=== PATIENT | male | born 1970 | race Caucasian/White ===

== ENCOUNTER 2019-02-14 08:06 | Emergency (ER) | payer SELFPAY | END 2019-02-14 11:00 | disposition left against medical advice (07) | LOC: ERS 08:06 | DX: Z53.21 Procedure and treatment not carried out due to patient leaving prior to being seen by health care provider (principal) | CPT/HCPCS: 93005 ==

== ENCOUNTER 2019-10-27 13:00 | Inpatient (IN) | payer BC ==
[2019-11-10 13:08] VITALS: BMI 33.2
[2019-11-15] MEDS ORDERED: Sodium Chloride 0.9% 100 ML ONE (05:54)
[2019-11-15] MEDS ORDERED: CEFAZOLIN 1 GM VIAL ONE (05:54)
[2019-11-15] MEDS ORDERED: Tranexamic Acid 1,000 MG/10 ML VIAL ONE (05:54)
[2019-11-15] MEDS ORDERED: Vancomycin 1.5 GRAM/300 ML BAG 1.5 GM/300 ML BAG ONE (05:56)
[2019-11-15] MEDS ORDERED: Midazolam HCl 2 mg/2 ml Vial ONE (06:27)
[2019-11-15] MEDS ORDERED: Fentanyl 100 MCG/2 ML VIAL ONE ×3 (06:27→09:45)
[2019-11-15] MEDS ORDERED: Ropivacaine 0.2% HCl/PF 20 ML ONE (07:06)
[2019-11-15] MEDS ORDERED: Adenosine 6 MG/2 ML VIAL ONE (07:16)
[2019-11-15] MEDS ORDERED: Naloxone HCl 0.4 mg/ml Vial IV PRN (07:30)
[2019-11-15] MEDS ORDERED: diphenhydrAMINE 25 MG CAP PO PRN ×2 (07:30→09:56)
[2019-11-15] MEDS ORDERED: traMADol HCl 50 MG TAB PO PRN ×2 (07:30→09:56)
[2019-11-15] MEDS ORDERED: Zolpidem Tartrate 5 MG TAB PO PRN ×2 (07:30→09:56)
[2019-11-15] MEDS ORDERED: Hydrocerin (Eucerin) Cream 120 gm Jar TOP PRN (07:30)
[2019-11-15] MEDS ORDERED: HYDROcodone/Acetaminophen 5/325 mg Tablet PO PRN (07:30)
[2019-11-15] MEDS ORDERED: diphenhydrAMINE 50 MG/ML VIAL IVP PRN (07:30)
[2019-11-15] MEDS ORDERED: Promethazine HCl 25 MG SUPP PR PRN (07:30)
[2019-11-15] MEDS ORDERED: Ondansetron PF 4 MG/2 ML Vial IVP PRN ×2 (07:30→09:56)
[2019-11-15] MEDS ORDERED: Bupivacaine 0.25% 10 ML VIAL EPIDURAL PRN (07:30)
[2019-11-15] MEDS ORDERED: diphenhydrAMINE 50 MG/ML VIAL IM PRN (07:30)
[2019-11-15] MEDS ORDERED: Naloxone HCl 0.4 mg/ml Vial IVP PRN (07:30)
[2019-11-15] MEDS ORDERED: Promethazine HCl 25 MG/ML VIAL IM PRN ×3 (07:30→09:56)
[2019-11-15] MEDS ORDERED: Promethazine HCl 25 MG/ML VIAL SLOW IVP PRN (08:18)
[2019-11-15] MEDS ORDERED: Ondansetron HCl/PF 4 MG/2 ML Vial IVP PRN (08:18)
[2019-11-15] MEDS ORDERED: Ondansetron PF 4 MG/2 ML Vial ONE (09:21)
[2019-11-15] MEDS ORDERED: PROPOFOL 200 MG/20 ML VIAL ONE (09:21)
[2019-11-15] MEDS ORDERED: Ketorolac Tromethamine 30 MG/ML VIAL ONE (09:21)
[2019-11-15] MEDS ORDERED: Lidocaine 1% PF 5 ML VIAL ONE (09:21)
[2019-11-15] MEDS ORDERED: Glycopyrrolate 0.2 MG/ML 5 ML SYRINGE ONE (09:21)
[2019-11-15] MEDS ORDERED: Lidocaine 1.5% w/Epi 1:200K 30 ML VIAL (Epid Use) ONE (09:21)
[2019-11-15] MEDS ORDERED: Rocuronium Bromide 10 MG/ML (10ML VIAL) ONE (09:21)
[2019-11-15] MEDS ORDERED: Bupivacaine 0.5% 10 ML VIAL ONE (09:45)
[2019-11-15] MEDS ORDERED: Morphine 2 MG/ML SYRINGE SLOW IVP PRN (09:56)
[2019-11-15] MEDS ORDERED: Morphine 4 MG/ML VIAL SLOW IVP PRN (09:56)
[2019-11-15] MEDS ORDERED: Fentanyl 100 MCG/2 ML VIAL SLOW IVP PRN ×2 (09:56)
[2019-11-15] MEDS ORDERED: HYDROcodone/Acetaminophen 10/325 mg Tablet PO PRN ×2 (09:56)
[2019-11-15] MEDS ORDERED: Acetaminophen 325 MG TAB PO PRN (09:56)
[2019-11-15] MEDS ORDERED: Promethazine HCl 25 MG/ML VIAL ONE (10:02)
--- NOTE | 2019-11-15 11:02 | RAD ---
EXAM: XR Hip Lt 1 View PROVIDED CLINICAL HISTORY: Postop COMPARISON: None FINDINGS: Postoperative changes of left total hip arthroplasty are demonstrated with associated soft tissue gas . IMPRESSION: As above.
--- NOTE | 2019-11-15 11:03 | RAD ---
EXAM: XR Pelvis AP STANDARD PROVIDED CLINICAL HISTORY: Postop COMPARISON: None FINDINGS: Postoperative changes of left total hip arthroplasty are demonstrated with associated soft tissue gas . Osseous fragment at the lateral margin of the superior acetabulum is noted, the chronicity of which is not certain. Correlation with preoperative films. IMPRESSION: As above.
[2019-11-15] MEDS: Ketorolac Tromethamine 30 MG/ML VIAL IVP SCH ×3 (12:52→23:58)
[2019-11-15] MEDS ORDERED: Ketorolac Tromethamine 30 MG/ML VIAL IVP SCH (14:00)
[2019-11-15] MEDS: HYDROcodone/Acetaminophen 5/325 mg Tablet PO PRN (15:19)
--- NOTE | 2019-11-15 15:19 | PDOC.HOSPP ---
- Subjective Encounter Date: 11/15/19 Encounter Time: 14:30 Subjective: Patient seen and examined. No new complaints. s/p left total hip replacement, consulted for medical management - Objective Vital Signs & Weight: Weight Weight 225 lb Radiology Reviewed by me: Yes (xray pelvic, xray hip) EKG Reviewed by me: Yes Hospitalist ROS - Review of Systems Eyes: denies: pain, vision change, conjunctivae inflammation, eyelid inflammation, redness, other ENT: denies: ear pain, ear discharge, nose pain, nose discharge, nose congestion , mouth pain, mouth swelling, throat pain, throat swelling, other Respiratory: denies: cough, dry, shortness of breath, hemoptysis, SOB with excertion, pleuritic pain, sputum, wheezing, other Cardiovascular: denies: chest pain, palpitations, orthopnea, paroxysmal noc. dyspnea, edema, light headedness, other Gastrointestinal: denies: nausea, vomiting, abdominal pain, diarrhea, constipation, melena, hematochezia, other Genitourinary: denies: dysuria, frequency, incontinence, hematuria, retention, other Musculoskeletal: denies: neck pain, shoulder pain, arm pain, back pain, hand pain, leg pain, foot pain, other Skin: denies: rash, lesions, vahid, bruising, other - Medication Medications: Active Medications Generic Name Dose Route Start Last Admin Trade Name Freq PRN Reason Stop Dose Admin Ketorolac Tromethamine 30 mg 11/15/19 12:00 11/15/19 12:52 Toradol IVP 11/17/19 06:01 Not Given Q6HR SAMIR - Exam General Appearance: NAD, awake alert Eye: PERRL, anicteric sclera ENT: normocephalic atraumatic, no oropharyngeal lesions Neck: supple, symmetric, no JVD, no thyromegaly Heart: RRR, no murmur, no gallops, no rubs Respiratory: CTAB, no wheezes, no rales, no ronchi Gastrointestinal: soft, non-tender, non-distended, normal bowel sounds Extremities: no cyanosis, no clubbing, no edema Extremities - other findings: left hip surgical site with dressing Skin: normal turgor, no lesions Neurological: cranial nerve grossly intact, no focal deficits Musculoskeletal: normal tone, normal strength Psychiatric: normal affect, normal behavior Hosp A/P (1) Status post left hip replacement Code(s): Z96.642 - PRESENCE OF LEFT ARTIFICIAL HIP JOINT Status: Acute (2) Obesity (BMI 30.0-34.9) Code(s): E66.9 - OBESITY, UNSPECIFIED Status: Chronic - Plan old records reviewed/req, plan discussed w/ family, PT/OT I have seen and examined pt bedside, updated plan to family, continue PT/OT as per [facility] protocol, continue aspirin for DVT prophylaxis as per [facility] protocol, medically stable with current treatment, Pain controlled. epidural as per anesthesia
[2019-11-15] MEDS: CEFAZOLIN 2 GM in Premix Bag 1 BAG IVPB SCH ×2 (15:20→23:57)
--- NOTE | 2019-11-15 15:29 | OP ---
DATE OF PROCEDURE: 11/15/2019 PREOPERATIVE DIAGNOSIS: Left hip dysplasia and/or healed fracture. POSTOPERATIVE DIAGNOSIS: Left hip dysplasia and/or healed fracture. PROCEDURE PERFORMED: Left total hip arthroplasty. CREATIVE ASSISTANT: Gregory Grady PA-C ANESTHESIOLOGIST: Jun. ANESTHESIA: The patient received general endotracheal tube and epidural and Gonzalez. ESTIMATED BLOOD LOSS: 350 mL. URINE: 200. IV FLUIDS: 1500 of crystalloids. ANTIBIOTICS: Vancomycin 1.5 g, Ancef 2 g, TXA 1 g. IMPLANTS: Tyron 58-mm hemispherical shell with a 10-degree poly insert and 130-degree Accolade II size 8 with a Biolox delta ceramic 36 +2.5 mm head. COMPLICATIONS: None. HISTORY OF PRESENT ILLNESS: Mr. Alonzo is a 49-year-old male with history of multiple medical problems, history of substance abuse and addiction to include methamphetamine. The patient has been sober for 2 years. He occasionally takes Tylenol No. 3, seen by Dr. Reed at [facility]. He has been followed by Pain Management. No surgeries. History of injections about 3 months ago. The patient's preoperative x-ray showed what appeared to be potential congenital hip disease versus healed fracture. Given the development of head intraoperatively, felt potentially he had development of hip dysplasia with secondary fracture, but had a change in the femoral head as well as with signs of healing of previous fracture intraoperatively. I discussed with the patient the risks and benefits of a left total hip arthroplasty to include pain, scar, bleeding, infection, damage to vital structures, decreased range of motion and strength, need for further surgeries, failure of procedure, continued pain despite surgical intervention, loss of life or limb, blood clots. I discussed that he must not return to IV drug use, increasing risk of infection, which could kill him. He understood the risks and benefits of procedure. The patient elects to proceed. DESCRIPTION OF PROCEDURE: Time-out was performed, designating the patient's left lower extremity as the operative site based on site, consents, and marking. After time-out, the patient's left lower extremity was prepped and draped in sterile fashion, and placed in lateral position with bony prominences well-padded. Lateral skin incision was made down to skin through the IT band, came down to the gluteus medius and minimus to expose the capsule. We T'd and held the capsule, exposed the femoral neck. There was a kind of what appeared to be a broken, potentially SCFE versus [id number] fracture with dysplastic hip. We made our 1st cut. The head was irregularly shaped as was the acetabulum. We made a secondary cut to get our neck in a better position. We then moved, placed our acetabular retractors anterior and posteriorly to expose acetabulum. We reamed, starting 44 up to a 48, attempting to keep it, medializing just the wall and then keeping it from lateralize to greatly came up to 55, which showed good fit. We knocked off the rim osteophytes from about the 10 o'clock position around to about the 4 o'clock position as well as open up the bone to help with exposure, decrease tenting of the capsule as well as to help with decreasing impingement with our osteophyte removal, we had placed our cup, placed our poly, impacted in place, and moved back to the hip. We broached up and had actually cut a little more neck about 3 more millimeters in the neck just about a half fingerbreadth above the lesser trochanter. We broached up, finally placing a size 8. We had reduced, felt good, a little bit of Shuck, overall good length. The patient was stiff before procedure was concerned about being stiff postoperatively, but he did have overall good lengths intraoperatively. Therefore, we placed the size 8 with +2.5 ceramic head, reduced it in place, washed, closed our T capsule with #2 Vicryl. We then closed with #5 Ethibond through 2 drill holes with an up and down stitch running, pulling the entire medius and minimus sleeve over to close as well as remainder with #2 Vicryl. We closed the IT band with 2 Vicryl, #2 Stratafix, 0 Stratafix, 2-0 Stratafix, and glue. The patient will be admitted for pain postoperatively. We will give one single dose radiation given the significant bone formation as well as previous fracture to decrease the risk of heterotopic ossification. We will follow inhouse. Job ID: [id number] [facility]
--- NOTE | 2019-11-15 17:34 | CON ---
DATE OF CONSULTATION: 11/15/2019 REASON FOR CONSULTATION: Mr. Alonzo is a 49-year-old gentleman, who is status post left total hip replacement, who is at risk for heterotopic ossification. HISTORY OF PRESENT ILLNESS: Mr. Alonzo states that he has had problems with his hip for 15 years. Apparently, he has a past history of drug use, although for the last several years, he has been sober. It was not clear whether he had a previous fracture of the hip or perhaps congenital hip disease. He underwent earlier today a total left hip arthroplasty. During the procedure, he did have multiple osteophytes and evidence of heterotopic ossification. I have now been asked to see the patient to discuss his options for treatment to prevent heterotopic ossification. He has been having pain in the hip and trouble walking prior to his surgery. Otherwise, he voices no other complaints. PAST MEDICAL HISTORY: He denies other medical or surgical problems. MEDICATIONS ON ADMISSION: None. ALLERGIES: NO KNOWN MEDICAL ALLERGIES. SOCIAL HISTORY: He lives in [place], with 2 roommates. 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 He has no cigarette use for the past 18 years, previously smoked 1 to 1.5 packs per day. He has no alcohol use at the present time. Again, he has a history of drug use, but has apparently been clean/sober for the last several years at least. FAMILY HISTORY: His mother is still living at age 67. His father is still living at age 65. There is no family history of cancer or other particular medical problems. REVIEW OF SYSTEMS: Twelve-system review of systems is otherwise negative. PHYSICAL EXAMINATION: VITAL SIGNS: Height 5 feet 9 inches, weight 225 pounds, blood pressure is 138/90, pulse is 68, respirations 16, temperature 98.2, and O2 saturation is 100%. CONSTITUTIONAL: He is alert and oriented and in no apparent distress. He is well developed and well nourished. Karnofsky performance status is a 90%. EYES: Pupils equal, round, and reactive to light. Extraocular movements are intact. ENT: Oral cavity and oropharynx normal without lesion or erythema. Palate elevates symmetrically. Gingiva is intact. NECK: Supple without cervical or supraclavicular adenopathy. No thyromegaly. Larynx midline. LUNGS: Breathing nonlabored. Clear to auscultation and percussion. CARDIOVASCULAR: Heart, regular rate and rhythm without murmur. No lower extremity edema. LYMPHATIC: No axillary or inguinal adenopathy. ABDOMEN: Soft, nontender, and nondistended without mass or hepatosplenomegaly. Liver percusses to normal size. NEUROLOGIC: Cranial nerves 2 through 12 are grossly intact. Motor strength is 5/5 in both upper and lower extremities in all muscle groups tested. Gait was not able to be tested. LABORATORY DATA: CBC on admission revealed a white blood cell count of 9600 with hemoglobin of 15.8, hematocrit of 48.7, and platelet count of 326,000. Electrolytes were normal. RADIOLOGIC DATA: X-ray of the pelvis from his hip replacement was personally reviewed. Again, he has some areas of osteophyte and heterotopic ossification of the left hip. ASSESSMENT: Mr. 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 He is status post left hip replacement surgery earlier today with a high risk for developing recurrent heterotopic ossification and limitation of movement in the joint. PLAN: I had a long discussion with Mr. Alonzo regarding his diagnosis, prognosis, and treatment options. I explained that he is at high risk for developing heterotopic ossification around the hip joint and in the soft tissues, which can cause pain and limitation of motion in the future after the hip replacement surgery. We then discussed options to prevent heterotopic ossification. One option would be high-dose indomethacin over a lengthy period of time. We discussed compliance issues with that medication as well as potential difficulties with ulceration in the GI tract or kidney issues from that medication. The other option would be a single fraction radiation therapy. The logistics of radiation as well as the benefits and risk of treatment were discussed. The simulation and treatment procedure were discussed. Side effects would include, but not be limited to skin reaction, fatigue, lower blood counts, nausea, vomiting, small risk of implant failure, and rarely other unforeseen side effects from the radiation therapy. Time was taken to answer all of his questions regarding his treatment options. His preference as is my recommendation is to proceed with a single fraction radiation therapy. We will make arrangements to have him treated within 72 hours of his hip replacement surgery. Assuming insurance approval is complete, then we can potentially proceed with treatment tomorrow. Thank you for this interesting consultation. Job ID: [id number]
[2019-11-15] MEDS: Dextrose 5 %-0.45 % NaCl 1,000 ML IV SCH ×2 (17:58→20:41)
[2019-11-15] MEDS: fentaNYL Citrate/PF 500 MCG, Bupivacaine 10 ML in Sodium Chloride 0.9% 80 ML EPIDURAL SCH (20:05)
[2019-11-15] MEDS: Vancomycin 1.5 GRAM/300 ML BAG 1.5 GM in Premix Bag 1 BAG IVPB SCH (20:44)
[2019-11-15] MEDS: Aspirin 81 mg Enteric Coated Tablet PO SCH (20:46)
[2019-11-16] MEDS: Dextrose 5 %-0.45 % NaCl 1,000 ML IV SCH ×2 (04:56→15:22)
[2019-11-16] MEDS: Ketorolac Tromethamine 30 MG/ML VIAL IVP SCH ×4 (05:28→23:03)
[2019-11-16 05:40] LABS: Hemoglobin 12.1 g/dL (14.0-18.0); Mean Corpuscular HGB CONC 32.8 g/dL (32.0-36.0); Mean Corpuscular Hemoglobin 29.5 pg (27.0-31.0); Mean Platelet Volume 7.9 fL (7.4-10.4); Platelet Count 233 thou/uL (130-400); RBC Distribution Width 11.7 % (11.5-14.5); Red Blood Cell (RBC) Count 4.09 mill/uL (4.70-6.10); White Blood Cell (WBC) Count 12.3 thou/uL (4.8-10.8)
[2019-11-16] MEDS: fentaNYL Citrate/PF 500 MCG, Bupivacaine 10 ML in Sodium Chloride 0.9% 80 ML EPIDURAL SCH ×2 (09:07→21:44)
[2019-11-16] MEDS: Senokot S 8.6-50 MG TAB PO SCH ×2 (09:08→20:37)
[2019-11-16] MEDS: Ferrous Gluconate 324 MG TAB PO SCH ×2 (09:08→20:36)
[2019-11-16] MEDS: Multivitamin W/ Minerals 1 TAB PO SCH (09:08)
[2019-11-16] MEDS: Aspirin 81 mg Enteric Coated Tablet PO SCH ×2 (09:08→20:36)
[2019-11-16] MEDS: HYDROcodone/Acetaminophen 5/325 mg Tablet PO PRN ×2 (09:09→13:12)
[2019-11-16] MEDS: Vancomycin 1.5 GRAM/300 ML BAG 1.5 GM in Premix Bag 1 BAG IVPB SCH (20:34)
[2019-11-17] MEDS: Dextrose 5 %-0.45 % NaCl 1,000 ML IV SCH ×3 (00:58→23:30)
[2019-11-17] MEDS: Ketorolac Tromethamine 30 MG/ML VIAL IVP SCH (05:15)
[2019-11-17 05:21] LABS: Hemoglobin 10.8 g/dL (14.0-18.0); Mean Corpuscular HGB CONC 33.4 g/dL (32.0-36.0); Mean Corpuscular Hemoglobin 30.4 pg (27.0-31.0); Mean Platelet Volume 8.1 fL (7.4-10.4); Platelet Count 189 thou/uL (130-400); RBC Distribution Width 11.6 % (11.5-14.5); Red Blood Cell (RBC) Count 3.55 mill/uL (4.70-6.10); White Blood Cell (WBC) Count 11.7 thou/uL (4.8-10.8)
[2019-11-17] MEDS: Aspirin 81 mg Enteric Coated Tablet PO SCH ×2 (08:01→19:52)
[2019-11-17] MEDS: Ferrous Gluconate 324 MG TAB PO SCH ×2 (08:01→19:52)
[2019-11-17] MEDS: Multivitamin W/ Minerals 1 TAB PO SCH (08:01)
[2019-11-17] MEDS: Senokot S 8.6-50 MG TAB PO SCH ×2 (08:01→19:53)
[2019-11-17] MEDS ORDERED: HYDROcodone/Acetaminophen 10/325 mg Tablet PO PRN (09:15)
[2019-11-17] MEDS: HYDROcodone/Acetaminophen 10/325 mg Tablet PO PRN ×3 (09:22→19:53)
[2019-11-17] MEDS: traMADol HCl 50 MG TAB PO PRN (11:17)
[2019-11-17] MEDS: Vancomycin 1.5 GRAM/300 ML BAG 1.5 GM in Premix Bag 1 BAG IVPB SCH (19:53)
[2019-11-17] MEDS ORDERED: Mag-Al 1200 mg/1200 mg/30 ML UDCUP PO PRN (21:01)
[2019-11-18] MEDS: HYDROcodone/Acetaminophen 10/325 mg Tablet PO PRN (04:35)
[2019-11-18 05:14] LABS: Mean Corpuscular HGB CONC 33.2 g/dL (32.0-36.0); Mean Corpuscular Hemoglobin 29.9 pg (27.0-31.0); Mean Corpuscular Volume 90.2 fL (78.0-98.0); Mean Platelet Volume 8.1 fL (7.4-10.4); Platelet Count 203 thou/uL (130-400); RBC Distribution Width 11.4 % (11.5-14.5); Red Blood Cell (RBC) Count 3.33 mill/uL (4.70-6.10)
[2019-11-18] MEDS: Dextrose 5 %-0.45 % NaCl 1,000 ML IV SCH ×2 (05:19→08:10)
[2019-11-18] MEDS: Aspirin 81 mg Enteric Coated Tablet PO SCH (07:55)
[2019-11-18] MEDS: Senokot S 8.6-50 MG TAB PO SCH (07:55)
[2019-11-18] MEDS: Ferrous Gluconate 324 MG TAB PO SCH (07:55)
[2019-11-18] MEDS: Multivitamin W/ Minerals 1 TAB PO SCH (07:55)
[2019-11-18] MEDS: traMADol HCl 50 MG TAB PO PRN (07:57)
[2019-11-18 10:50] VITALS: BP 110/70; TEMP 98.4
== END 2019-11-18 12:10 | disposition home or self-care (01) | DRG 470 ==
LOC: SJJU 11-15 05:35
PROVIDERS: ADMIT Orthopaedic Surgery; ATTEND Orthopaedic Surgery
PROC: 0SRB04Z Replacement of Left Hip Joint with Ceramic on Polyethylene Synthetic Substitute, Open Approach (ICD-10-PCS; principal; 2019-11-15)
DX: M25.752 Osteophyte, left hip (principal); I10 Essential (primary) hypertension; M19.90 Unspecified osteoarthritis, unspecified site; X58.XXXD Exposure to other specified factors, subsequent encounter; E66.9 Obesity, unspecified; Q65.89 Other specified congenital deformities of hip; S72.002D Fracture of unspecified part of neck of left femur, subsequent encounter for closed fracture with routine healing; Z68.33 Body mass index [BMI] 33.0-33.9, adult
CPT/HCPCS: 36415; 72170; 77014; 77290; 77412; 77417; 85027; J0153; J0690; J1885; J2001; J2250; J2405; J2550; J2704; J2710; J2795; J3010; J3490

== ENCOUNTER 2019-11-10 13:19 | Outpatient (CLI) | payer BC ==
[2019-11-10 15:18] LABS: #Basophils 0.1 thou/uL (0.0-0.2); #Eosinphils 0.2 thou/uL (0.0-0.7); #Lymphocytes 2.7 thou/uL (1.20-3.40); #Monocytes 0.7 thou/uL (0.11-0.59); #Neutrophils 5.9 thou/uL (1.40-6.50); %Basophils 0.7 % (0.0-1.0); %Lymphocytes 28.5 % (21.0-51.0); %Monocytes 7.5 % (0.0-10.0); %Neutrophils 61.2 % (42.0-75.0); Hemoglobin 15.8 g/dL (14.0-18.0); Mean Corpuscular HGB CONC 32.5 g/dL (32.0-36.0); Mean Corpuscular Hemoglobin 29.2 pg (27.0-31.0); Mean Corpuscular Volume 89.9 fL (78.0-98.0); Mean Platelet Volume 8.2 fL (7.4-10.4); Platelet Count 326 thou/uL (130-400); RBC Distribution Width 11.7 % (11.5-14.5); Red Blood Cell (RBC) Count 5.42 mill/uL (4.70-6.10); White Blood Cell (WBC) Count 9.6 thou/uL (4.8-10.8)
[2019-11-10 15:25] LABS: INR-International Normal Ratio 0.9; Prothrombin Time 12.3 SEC (12.0-14.7)
[2019-11-10 15:39] LABS: Anion Gap 14 mmol/L (10-20); BUN (Urea Nitrogen) 13 mg/dL (8.9-20.6); Calc. Creatinine Clearance 0 mL/min (70-130); Calcium 8.8 mg/dL (7.8-10.44); Carbon Dioxide 23 mmol/L (22-29); Chloride 104 mmol/L (98-107); Estimated GFR-MDRD 83; Glucose 78 mg/dL (70-105); Potassium 4.6 mmol/L (3.5-5.1); Sodium 136 mmol/L (136-145)
--- NOTE | 2019-11-10 17:00 | EKG ---
Test Reason : Blood Pressure : / mmHG Vent. Rate : 073 BPM Atrial Rate : 073 BPM P-R Int : 160 ms QRS Dur : 086 ms QT Int : 396 ms P-R-T Axes : 035 051 017 degrees QTc Int : 436 ms Normal sinus rhythm Normal ECG When compared with ECG of 14-FEB-2019 08:20, (Unconfirmed) Questionable change in QRS axis Confirmed by DR. Kobe ESTES ([id number]) on 11/10/2019 5:00:05 PM Referred By: SABA Confirmed By:DR. Kobe ESTES
== END 2019-11-10 13:20 | disposition home or self-care (01) ==
LOC: LABBT 13:19
PROVIDERS: ATTEND Orthopaedic Surgery
DX: Z01.818 Encounter for other preprocedural examination (principal); M16.12 Unilateral primary osteoarthritis, left hip
CPT/HCPCS: 80048; 85025; 85610; 87081; 93005; 93010

== ENCOUNTER 2020-08-11 08:13 | Emergency (ER) | payer BC, OTHER ==
[2020-08-11 09:03] LABS: #Basophils 0.1 thou/uL (0.0-0.2); #Monocytes 0.7 thou/uL (0.11-0.59); #Neutrophils 7.6 thou/uL (1.40-6.50); %Basophils 0.7 % (0.0-1.0); %Eosinophils 0.5 % (0.0-10.0); %Monocytes 7.7 % (0.0-10.0); %Neutrophils 80.2 % (42.0-75.0); Hemoglobin 15.8 g/dL (14.0-18.0); Mean Corpuscular HGB CONC 32.5 g/dL (32.0-36.0); Mean Corpuscular Hemoglobin 29.8 pg (27.0-31.0); Mean Corpuscular Volume 91.8 fL (78.0-98.0); Platelet Count 360 thou/uL (130-400); RBC Distribution Width 12.5 % (11.5-14.5); Red Blood Cell (RBC) Count 5.29 mill/uL (4.70-6.10); White Blood Cell (WBC) Count 9.5 thou/uL (4.8-10.8)
[2020-08-11 09:17] LABS: ALT (SGPT) 18 U/L (8-55); AST (SGOT) 16 U/L (5-34); Albumin 4.1 g/dL (3.5-5.0); Alkaline Phosphatase 136 U/L (40-110); Anion Gap 15 mmol/L (10-20); BUN (Urea Nitrogen) 14 mg/dL (8.9-20.6); Bilirubin, Total 0.4 mg/dL (0.2-1.2); Calc. Creatinine Clearance 0 mL/min (70-130); Calcium 9.1 mg/dL (7.8-10.44); Carbon Dioxide 21 mmol/L (22-29); Chloride 105 mmol/L (98-107); Estimated GFR-MDRD 64; Glucose 184 mg/dL (70-105); Potassium 3.8 mmol/L (3.5-5.1); Protein, Total 7.1 g/dL (6.0-8.3); Sodium 137 mmol/L (136-145)
--- NOTE | 2020-08-11 13:29 | RAD ---
PORTABLE CHEST: HISTORY: Cough and fever. COMPARISON: 12/15/2011 exam. FINDINGS: Heart size appears borderline enlarged. There are atherosclerotic changes of the aorta. The lungs a re clear of any infiltrative process. Some chronic-appearing changes are seen. IMPRESSION: No active intrathoracic disease. POS: OFF
[2020-08-11] MEDS ORDERED: Iopamidol-370 76% 500 ML 1 ML ONE (13:43)
--- NOTE | 2020-08-11 15:42 | CT ---
CT ANGIO OF CHEST PERFORMED WITH INTRAVENOUS CONTRAST ENHANCEMENT WITH 3D RECONSTRUCTIONS: 08/11/30 HISTORY: Cough and close contact with coworker diagnosed positive for COVID. The lungs are clear of any infiltrative process. No ground glass changes. No pleural effusions or pul monary nodules. Thoracic aorta is normal in caliber. There is good pulmonary artery opacification and no CT evidence for pulmonary embolus. The visualized liver parenchyma shows no focal findings. There are arthritic changes of the spine. IMPRESSION: No CT Evidence for pulmonary embolus. No evidence of any infiltrative lung process. POS: OFF
[2020-08-12 13:22] LABS: SARS-CoV-2 MS2 Positive; SARS-CoV-2 N Gene Negative; SARS-CoV-2 S Gene Negative; SARS-CoV-2 by NAA Not Detected (NotDetected); SARS-CoV-2 orf1ab Negative
== END 2020-08-11 13:15 | disposition home or self-care (01) ==
LOC: ERS 08:13
DX: B34.9 Viral infection, unspecified (principal); R43.9 Unspecified disturbances of smell and taste; Z20.828 Contact with and (suspected) exposure to other viral communicable diseases
CPT/HCPCS: 36600; 71045; 71275; 80053; 84484; 85025; 85379; 87635; 93005; Q9967; U0003

== ENCOUNTER 2020-09-22 09:31 | Emergency (ER) | payer SELFPAY ==
[2020-09-22 20:50] LABS: SARS-CoV-2 MS2 Positive; SARS-CoV-2 N Gene Negative; SARS-CoV-2 S Gene Negative; SARS-CoV-2 by NAA Not Detected (NotDetected); SARS-CoV-2 orf1ab Negative
== END 2020-09-22 09:57 | disposition home or self-care (01) ==
LOC: ERS 09:31
DX: Z20.828 Contact with and (suspected) exposure to other viral communicable diseases (principal); I10 Essential (primary) hypertension; Z79.899 Other long term (current) drug therapy
CPT/HCPCS: 87635; 99283; U0003

== ENCOUNTER 2022-09-27 15:23 | Emergency (ER) | payer OTHER, SELFPAY ==
[2022-09-27] MEDS ORDERED: HYDROcodone/Acetaminophen 10/325 mg Tablet ONE (15:45)
== END 2022-09-27 15:48 | disposition home or self-care (01) ==
LOC: ERS 15:23
DX: K04.7 Periapical abscess without sinus (principal); F17.220 Nicotine dependence, chewing tobacco, uncomplicated
CPT/HCPCS: 99282

== ENCOUNTER 2023-07-21 10:39 | Emergency (ER) | payer SELFPAY ==
[2023-07-21] MEDS ORDERED: Lidocaine 1% w/Epinephrine 1:100K 20 ML VIAL ONE (11:48)
[2023-07-21] MEDS ORDERED: Boostrix 0.5 ML (Tdap) VIAL (>/=7 yrs of age) ONE (11:48)
[2023-07-21] MEDS ORDERED: traMADol HCl 50 MG TAB ONE (11:52)
[2023-07-21] MEDS ORDERED: Cephalexin 250 MG CAP ONE (12:36)
== END 2023-07-21 12:42 | disposition home or self-care (01) ==
LOC: ERS 10:39
DX: S91.311A Laceration without foreign body, right foot, initial encounter (principal); F17.220 Nicotine dependence, chewing tobacco, uncomplicated; Z23 Encounter for immunization; Z77.111 Contact with and (suspected) exposure to water pollution; W18.30XA Fall on same level, unspecified, initial encounter
CPT/HCPCS: 12001; 90471; 90715

== ENCOUNTER 2023-12-02 21:36 | Emergency (ER) | payer OTHER ==
[2023-12-02 22:23] LABS: #Basophils 0.1 thou/uL (0.0-0.2); #Monocytes 1.2 thou/uL (0.11-0.59); #Neutrophils 3.3 thou/uL (1.40-6.50); %Basophils 0.9 % (0.0-1.0); %Eosinophils 0.5 % (0.0-10.0); %Lymphocytes 21.1 % (21.0-51.0); %Monocytes 19.7 % (0.0-10.0); %Neutrophils 56.4 % (42.0-75.0); Hematocrit 47.2 % (42.0-52.0); Hemoglobin 15.8 g/dL (14.0-18.0); Mean Corpuscular HGB CONC 33.5 g/dL (32.0-36.0); Mean Corpuscular Hemoglobin 29.5 pg (27.0-31.0); Mean Corpuscular Volume 88.1 fl (78.0-98.0); Mean Platelet Volume 9.8 fL (7.4-10.4); Platelet Count 250 10x3/uL (130-400); Red Blood Cell (RBC) Count 5.36 mill/uL (4.70-6.10); White Blood Cell (WBC) Count 5.9 10x3/uL (4.8-10.8)
[2023-12-02] MEDS ORDERED: Acetaminophen 500 MG TAB ONE (22:43)
[2023-12-02] MEDS ORDERED: Metoclopramide HCl 10 MG (2 mL) VIAL ONE (22:43)
[2023-12-02 22:46] LABS: ALT (SGPT) 26 U/L (8-55); AST (SGOT) 18 U/L (5-34); Alkaline Phosphatase 123 U/L (40-110); Anion Gap 13 mmol/L (10-20); BUN (Urea Nitrogen) 16 mg/dL (8.4-25.7); Bilirubin, Total 0.2 mg/dL (0.2-1.2); Calc. Creatinine Clearance 0 mL/min (70-130); Calcium 8.5 mg/dL (7.8-10.44); Carbon Dioxide 24 mmol/L (22-29); Chloride 102 mmol/L (98-107); Estimated GFR 84; Globulin 2.5 g/dL (2.4-3.5); Glucose 111 mg/dL (70-105); Potassium 4.1 mmol/L (3.5-5.1); Protein, Total 6.5 g/dL (6.0-8.3); Sodium 135 mmol/L (136-145)
== END 2023-12-03 02:15 | disposition home or self-care (01) ==
LOC: ERS 21:36
DX: R51.9 Headache, unspecified (principal); F17.220 Nicotine dependence, chewing tobacco, uncomplicated
CPT/HCPCS: 36415; 70496; 80053; 85025; 86140; 94760; 96365; J2765